=== PATIENT | male | born 2000 | race Caucasian/White ===

== ENCOUNTER 2019-09-26 09:29 | Emergency (ER) | payer OTHER ==
[~2019-09-26] VITALS: Ht 175.3 cm; Wt 68.0 kg
--- NOTE | 2019-09-26 09:36 | NUR ---
CAME IN FOR L hand laceration 45 mins ago. not utd w tetanus shot., TO ER BED 10, HOOKED TO MONITOR, CHANGED TO HOSP GOWN, WARM BLANKET PROVIDED, PATIENT AAO x 4, AWAITING MD [email or web address]
--- NOTE | 2019-09-26 09:45 | NUR ---
FRANCHESCA SHIELDS AT BEDSIDE FOR CLEANING OF WOUND
[2019-09-26] MEDS ORDERED: LIDOCAINE 1%-EPI 1:100,000 20 ML VIAL ONE (09:47)
[2019-09-26] MEDS ORDERED: TDAP [DIPH/PERTUSSIS/TET] 0.5 ML VIAL IM ONE ×2 (09:48→10:00)
--- NOTE | 2019-09-26 09:54 | NUR ---
Dr Tabares at bedside for suturing
--- NOTE | 2019-09-26 10:25 | NUR ---
WOUND DRESSING APPLIED
--- NOTE | 2019-09-26 10:31 | NUR ---
Patient discharged to home in stable condition. Written and verbal after care instructions given. Patient verbalizes understanding of instruction.
[2019-09-26 10:34] VITALS: BP 122/81
== END 2019-09-26 10:35 | disposition home or self-care (01) ==
LOC: ER 09:32
DX: S61.411A Laceration without foreign body of right hand, initial encounter (principal); Y08.89XA Assault by other specified means, initial encounter; Y93.89 Activity, other specified; Y92.89 Other specified places as the place of occurrence of the external cause; Y99.8 Other external cause status
CPT/HCPCS: 12002; 90471; 90715; 99283; A6403; J3490

== ENCOUNTER 2019-10-07 10:01 | Emergency (ER) | payer OTHER ==
[~2019-10-07] VITALS: Ht 175.3 cm; Wt 68.0 kg
[2019-10-07 10:01] VITALS: BP 113/54
--- NOTE | 2019-10-07 10:28 | NUR ---
SEEN AND EXAMINED BY
[2019-10-07] MEDS ORDERED: BENZOIN COMPOUND TINCT 60 ML BOTTLE ONE (10:29)
--- NOTE | 2019-10-07 10:30 | NUR ---
SUTURE REMOVE NO BLEEDING NOTED. AWARE.
--- NOTE | 2019-10-07 10:34 | NUR ---
Patient discharged to home in stable condition. Written and verbal after care instructions given. Patient verbalizes understanding of instruction.
== END 2019-10-07 10:35 | disposition home or self-care (01) ==
LOC: ER 10:05
DX: S61.411D Laceration without foreign body of right hand, subsequent encounter (principal); X58.XXXD Exposure to other specified factors, subsequent encounter